=== PATIENT | male | born 1960 | race Caucasian/White ===

== ENCOUNTER 2019-01-22 11:16 | Inpatient (IN) | payer OTHER ==
[~2019-01-22] VITALS: Ht 177.8 cm; Wt 95.5 kg
--- NOTE | 2019-01-22 12:17 | NUR ---
pt. off to ct with reproduction production manager via w/c
[2019-01-22 12:37] LABS: BASOPHILS % (AUTO) 0.4 % (0-1); EOSINOPHILS # (AUTO) 0.1 X10'3 (0-0.9); EOSINOPHILS % (AUTO) 0.6 % (0-6); HEMATOCRIT 39.8 % (42.0-52.0); HEMOGLOBIN 13.4 g/dl (14.0-17.9); LYMPHOCYTES # (AUTO) 0.9 X10'3 (1.1-4.8); LYMPHOCYTES % (AUTO) 7.7 % (21-51); MEAN CORPUSCULAR HEMOGLOBIN 28.9 PG (27.0-31.0); MEAN CORPUSCULAR HGB CONC 33.8 g/dL (33.0-36.5); MEAN CORPUSCULAR VOLUME 85.4 FL (78-98); MEAN PLATELET VOLUME 7.3 FL (7.4-10.4); MONOCYTES # (AUTO) 1.1 X10'3 (0-0.9); MONOCYTES % (AUTO) 9.4 % (2-12); NEUTROPHILS # (AUTO) 9.2 X10'3 (1.8-7.7); NEUTROPHILS % (AUTO) 81.9 % (42-75); PLATELET COUNT 525 X10'3 (140-440); RED BLOOD COUNT 4.65 X10'6 (4.70-6.10); RED CELL DISTRIBUTION WIDTH 14.1 % (11.5-14.5); WHITE BLOOD COUNT 11.2 X10'3 (4.5-11.0)
[2019-01-22 12:53] LABS: CLARITY,URINE CLOUDY (Clear); COLOR,URINE YELLOW (Yellow); GLUCOSE, URINE NEGATIVE (Neg); KETONES,URINE NEGATIVE (Neg); LEUKOCYTE ESTERASE ,URINE LARGE (Neg); NITRITES, URINE NEGATIVE (Neg); OCCULT BLOOD,URINE MODERATE (Neg); PROTEIN,URINE TRACE mg/dl (Neg); UROBILINOGEN,URINE 0.2 E.U/dL (0.2-1.0)
[2019-01-22 12:56] LABS: ALANINE AMINOTRANSFERASE 23 U/L (12-78); ALBUMIN 3.1 G/DL (3.4-5.0); ALBUMIN/GLOBULIN RATIO 0.8 (1.1-1.5); ALKALINE PHOSPHATASE 64 IU/L (46-116); ANION GAP 10 (8-16); ASPARTATE AMINO TRANSFERASE 7 U/L (10-37); BILIRUBIN,TOTAL 0.5 MG/DL (0.1-1.0); BLOOD UREA NITROGEN 19 MG/DL (7-18); BUN/CREATININE RATIO 15.8 (5.4-32.0); CALCIUM 9.4 MG/DL (8.5-10.1); CHLORIDE 103 MMOL/L (99-107); GLUCOSE 107 MG/DL (70-104); LIPASE 106 U/L (73-393); POTASSIUM 3.3 MMOL/L (3.5-5.1); SODIUM 139 MMOL/L (135-145); TOTAL CARBON DIOXIDE 26.3 MMOL/L (24-32); TOTAL PROTEIN 7.2 G/DL (6.4-8.2); eGFR 62 ML/MIN
[2019-01-22 13:14] LABS: UA COLLECTION TYPE CLN CATCH MIDSTREAM
[2019-01-22 13:28] LABS: SQUAMOUS EPITHELIAL CELL,UR FEW /LPF (FEW)
[2019-01-22 13:35] LABS: BACTERIA,URINE 4+ /HPF (Neg); RBC,URINE 0-2 /HPF (0-2); WBC,URINE TNTC /HPF (0-4)
[2019-01-22 13:36] LABS: RENAL CELLS, URINE FEW /HPF
[2019-01-22] MEDS ORDERED: CefTRIAXone 2gm/D5W 50ml 50 ML IV ONE (13:55)
[2019-01-22] MEDS ORDERED: normal saline 1000ML IV soln IV ONE (13:55)
[2019-01-22] MEDS ORDERED: acetaminophen 325mg tablet PO PRN ×2 (15:25)
[2019-01-22] MEDS ORDERED: mag hydrox/Alum hydrox/simeth 30ml oral suspension PO PRN (15:25)
[2019-01-22] MEDS ORDERED: magnesium Cl slow-release 64mg tablet PO PRN (15:25)
[2019-01-22] MEDS ORDERED: magnesium 2GM in 50ml NS 50 ML IV PRN (15:25)
[2019-01-22] MEDS ORDERED: ondansetron/PF 4mg/2ml inj IV PRN (15:25)
[2019-01-22] MEDS ORDERED: potassium Cl 20 mEq SR tablet PO PRN (15:25)
[2019-01-22] MEDS ORDERED: morphine 2 MG/ML inj. syringe IV PRN (15:25)
[2019-01-22] MEDS ORDERED: magnesium 4gm in 100ml NS 100 ML IV PRN (15:25)
[2019-01-22] MEDS ORDERED: potassium CL 10mEq/100ml bag 100 ML IV PRN ×2 (15:25)
[2019-01-22] MEDS ORDERED: HYDR25TA4 PO (15:33)
[2019-01-22] MEDS ORDERED: IBUP-1984 PO (15:33)
[2019-01-22] MEDS ORDERED: ASPI-1265 PO (15:33)
[2019-01-22] MEDS ORDERED: FLO0.4C PO (15:33)
[2019-01-22] MEDS ORDERED: METO50TA7 PO (15:33)
[2019-01-22] MEDS ORDERED: LOSA50TA64 PO (15:33)
[2019-01-22] MEDS: normal saline 1000ml 1,000 ML IV SCH (15:48)
[2019-01-22] MEDS: HYDROcodone/acetaminophen 10/325mg tab PO PRN (16:00)
[2019-01-22] MEDS ORDERED: hydrALAZINE 20mg/ml inj. IV PRN (17:25)
[2019-01-22] MEDS ORDERED: tamsulosin 0.4mg capsule PO SCH (17:30)
[2019-01-22] MEDS ORDERED: tamsulosin 0.4mg capsule PO ONE (17:30)
--- NOTE | 2019-01-22 21:00 | NUR ---
Patient in room [facility]. I have received report from RUDY Alberts RN and had the opportunity to ask questions and assume patient care.
--- NOTE | 2019-01-22 21:24 | NUR ---
patient arrived at 2115 via gurney and in no acute distress.
[2019-01-22 21:28] VITALS: BP 125/81
[2019-01-22] MEDS: morphine 2 MG/ML inj. syringe IV PRN (21:50)
[2019-01-23] VITALS (21 sets, daily range): BP systolic 80–170; BP diastolic 52–107
[2019-01-23] MEDS: HYDROcodone/acetaminophen 10/325mg tab PO PRN ×3 (00:28→21:09)
[2019-01-23] MEDS: potassium Cl 20 mEq SR tablet PO PRN ×2 (01:30→06:41)
[2019-01-23] MEDS: normal saline 1000ml 1,000 ML IV SCH ×2 (01:30→11:29)
[2019-01-23] MEDS: morphine 2 MG/ML inj. syringe IV PRN (04:01)
[2019-01-23] MEDS ORDERED: morphine 2 MG/ML inj. syringe IV STA (04:16)
--- NOTE | 2019-01-23 04:21 | NUR ---
patient is in a lot pain and was screaming. He was getting morphine and norco for pain. patient still c/o pain and stating its not helping. Notify Dr. feliz and ordered 2mg morphine once and 4mg morphine q3h prn.
[2019-01-23 04:30] LABS: BASOPHILS # (AUTO) 0.1 X10'3 (0-0.2); BASOPHILS % (AUTO) 1.3 % (0-1); EOSINOPHILS # (AUTO) 0.1 X10'3 (0-0.9); EOSINOPHILS % (AUTO) 0.7 % (0-6); HEMATOCRIT 37.6 % (42.0-52.0); HEMOGLOBIN 12.7 g/dl (14.0-17.9); LYMPHOCYTES # (AUTO) 1.1 X10'3 (1.1-4.8); MEAN CORPUSCULAR HEMOGLOBIN 28.9 PG (27.0-31.0); MEAN CORPUSCULAR HGB CONC 33.7 g/dL (33.0-36.5); MEAN CORPUSCULAR VOLUME 85.6 FL (78-98); MEAN PLATELET VOLUME 7.2 FL (7.4-10.4); MONOCYTES # (AUTO) 1.3 X10'3 (0-0.9); MONOCYTES % (AUTO) 11.8 % (2-12); NEUTROPHILS # (AUTO) 8.1 X10'3 (1.8-7.7); NEUTROPHILS % (AUTO) 76.2 % (42-75); PLATELET COUNT 533 X10'3 (140-440); RED BLOOD COUNT 4.39 X10'6 (4.70-6.10); RED CELL DISTRIBUTION WIDTH 13.8 % (11.5-14.5); WHITE BLOOD COUNT 10.7 X10'3 (4.5-11.0)
[2019-01-23 04:42] LABS: ALBUMIN 3.2 G/DL (3.4-5.0); ANION GAP 10 (8-16); BLOOD UREA NITROGEN 18 MG/DL (7-18); BUN/CREATININE RATIO 13.1 (5.4-32.0); CALCIUM 8.7 MG/DL (8.5-10.1); CHLORIDE 105 MMOL/L (99-107); CREATININE 1.37 MG/DL (0.60-1.10); GLUCOSE 101 MG/DL (70-104); MAGNESIUM 1.6 MG/DL (1.5-2.4); POTASSIUM 3.5 MMOL/L (3.5-5.1); SODIUM 140 MMOL/L (135-145); TOTAL CARBON DIOXIDE 25.3 MMOL/L (24-32); eGFR 54 ML/MIN
--- NOTE | 2019-01-23 06:42 | NUR ---
Problems reprioritized. Patient report given, questions answered & plan of care reviewed with FATOUMATA Tucker.
--- NOTE | 2019-01-23 06:54 | NUR ---
Patient in room [facility]. I have received report from Bibiana Escalante RN and had the opportunity to ask questions and assume patient care.
[2019-01-23] MEDS: morphine 4 MG/ML inj SYRINge IV PRN ×2 (07:24→10:11)
[2019-01-23] MEDS: metoprolol succinate 25mg (24-HOUR) SR. Tablet PO SCH (07:26)
[2019-01-23] MEDS: CefTRIAXone 2gm/D5W 50ml 50 ML IV SCH (07:26)
[2019-01-23] MEDS: tamsulosin 0.4mg capsule PO SCH (07:26)
[2019-01-23] MEDS ORDERED: non-formulary drug (Metoprolol Succinate* (Toprol Xl*) 1 TAB) PO SCH (08:00)
[2019-01-23] MEDS: K and/or MAG REPLACEMENT MC SCH (08:00)
[2019-01-23] MEDS: magnesium hydroxide 30ml (MOM) UD suspension PO PRN (09:29)
[2019-01-23 10:37] LABS: PARTIAL THROMBOPLASTIN TIME 31 SECONDS (22-32)
[2019-01-23] MEDS ORDERED: ringers solution, lacted 1,000 ML IV ONE (11:13)
--- NOTE | 2019-01-23 12:37 | NUR ---
Pt is going to OR for kidney stone Extraction
[2019-01-23] MEDS ORDERED: iohexol 300 MG/1 ML 50ml polymer ONE (12:38)
--- NOTE | 2019-01-23 12:41 | NUR ---
Problems reprioritized. Patient report given, questions answered & plan of care reviewed with Casa in OR.
[2019-01-23] MEDS ORDERED: fentaNYL /PF 50mcg/ml 5ml ampule ONE (12:45)
[2019-01-23] MEDS ORDERED: midazolam 2 mg/2 ml injection ONE (12:45)
[2019-01-23] MEDS ORDERED: LIDOcaine 2% (20mg/ml) 5ml vial ONE (12:46)
[2019-01-23] MEDS ORDERED: dexamethasone sod phosphate 4mg/ml inj. ONE (12:46)
[2019-01-23] MEDS ORDERED: ondansetron/PF 4mg/2ml inj ONE (12:46)
[2019-01-23] MEDS ORDERED: propofol inj 20 ML IV ONE (12:46)
[2019-01-23] MEDS ORDERED: ringers solution, lacted 1,000 ML IV SCH (12:52)
[2019-01-23] MEDS ORDERED: ondansetron/PF 4mg/2ml inj IV PRN (12:55)
[2019-01-23] MEDS ORDERED: fentaNYL/PF 50MCG/1 ML 2ML syringe IV PRN ×2 (12:55)
[2019-01-23] MEDS ORDERED: morphine 4 MG/ML inj SYRINge IV PRN ×2 (12:55)
[2019-01-23] MEDS ORDERED: hydrALAZINE 20mg/ml inj. IV PRN (12:55)
[2019-01-23] MEDS ORDERED: labetalol 20mg/4ml (5mg/ml) syringe IV PRN (12:55)
[2019-01-23] MEDS ORDERED: sevoflurane 250ml liquid IH ONE (13:20)
[2019-01-23] MEDS ORDERED: acetaminophen 1,000mg/100ml IV 100 ML IV ONE (13:24)
--- NOTE | 2019-01-23 14:15 | NUR ---
Received from OR via SURGICAL BED. , accompanied by Anesthesiologist LIAN and report given by Anesthesiolgist. 20G PIV IN LEFT AC RUNNING LR AT 100. 10L MASK ON WITH 100% SATURATIONS. SCDS DONNED. WILL CONTINUE TO ASSESS. Addendum: 01/23/19 at 1431 by John Tan RN, RN Amended: Links added.
--- NOTE | 2019-01-23 15:15 | NUR ---
ALL CRITERIA FOR TRANSFER TO THE FLOOR HAS BEEN ACHIEVED. VSS. BED LOW, CALL LIGHT AND VS. SET IN PLACE. RN PRESENT TO ACCEPT CARE. PATIENT RESTING COMFORTABLY IN BED. BELONGINGS SENT WITH PATIENT. DRESSINGS CDI. Addendum: 01/23/19 at 1528 by John Tan RN RN Amended: Links added.
--- NOTE | 2019-01-23 15:18 | NUR ---
Patient in room [facility]. I have received report from ELO HAM and had the opportunity to ask questions and assume patient care.
--- NOTE | 2019-01-23 15:34 | NUR ---
patient returned to room 346b via bed accompanied by x1 staff. patient is alert and oriented and denies any pain. post op vitals initiated. will continue to monitor. call light within reach.
--- NOTE | 2019-01-23 18:37 | NUR ---
Patient in room [facility]. I have received report from FATOUMATA RANKIN and had the opportunity to ask questions and assume patient care. Addendum: 01/23/19 at 1837 by Katia Thomas RN Amended: Links added.
--- NOTE | 2019-01-23 21:13 | NUR ---
patient c/o not passing urine at this time and did bladder scan and found to have 650cc. Dr. banerjee ordered to to straight cath for patient. Educated patient about the process and encouraged him to walk prior the straight cath
[2019-01-24] VITALS: BP 153/80
--- NOTE | 2019-01-24 02:00 | NUR ---
patient decided to do straight cath and had an output of 1000cc, felt a lot better and had less pain.
[2019-01-24] MEDS: normal saline 1000ml 1,000 ML IV SCH ×3 (04:00→17:45)
[2019-01-24 04:51] VITALS: BP 138/92
[2019-01-24 04:58] LABS: BASOPHILS # (AUTO) 0.1 X10'3 (0-0.2); BASOPHILS % (AUTO) 0.6 % (0-1); EOSINOPHILS % (AUTO) 0.3 % (0-6); HEMATOCRIT 32.9 % (42.0-52.0); HEMOGLOBIN 11.4 g/dl (14.0-17.9); LYMPHOCYTES # (AUTO) 0.9 X10'3 (1.1-4.8); LYMPHOCYTES % (AUTO) 9.7 % (21-51); MEAN CORPUSCULAR HEMOGLOBIN 29.3 PG (27.0-31.0); MEAN CORPUSCULAR HGB CONC 34.7 g/dL (33.0-36.5); MEAN CORPUSCULAR VOLUME 84.5 FL (78-98); MEAN PLATELET VOLUME 6.8 FL (7.4-10.4); MONOCYTES % (AUTO) 10.8 % (2-12); NEUTROPHILS # (AUTO) 7.3 X10'3 (1.8-7.7); NEUTROPHILS % (AUTO) 78.6 % (42-75); PLATELET COUNT 456 X10'3 (140-440); RED BLOOD COUNT 3.89 X10'6 (4.70-6.10); RED CELL DISTRIBUTION WIDTH 14.1 % (11.5-14.5); WHITE BLOOD COUNT 9.3 X10'3 (4.5-11.0)
[2019-01-24 05:17] LABS: ALBUMIN 2.7 G/DL (3.4-5.0); ANION GAP 10 (8-16); BLOOD UREA NITROGEN 22 MG/DL (7-18); BUN/CREATININE RATIO 17.7 (5.4-32.0); CALCIUM 8.3 MG/DL (8.5-10.1); CHLORIDE 107 MMOL/L (99-107); CREATININE 1.24 MG/DL (0.60-1.10); GLUCOSE 126 MG/DL (70-104); MAGNESIUM 2.1 MG/DL (1.5-2.4); POTASSIUM 3.9 MMOL/L (3.5-5.1); SODIUM 142 MMOL/L (135-145); TOTAL CARBON DIOXIDE 24.6 MMOL/L (24-32); eGFR 60 ML/MIN
[2019-01-24] MEDS ORDERED: famotidine 20mg tablet PO ONE (06:00)
[2019-01-24] MEDS: magnesium hydroxide 30ml (MOM) UD suspension PO PRN (06:05)
--- NOTE | 2019-01-24 06:44 | NUR ---
Problems reprioritized. Patient report given, questions answered & plan of care reviewed with FATOUMATA Sanabria.
--- NOTE | 2019-01-24 07:12 | NUR ---
Patient in room [facility]. I have received report from Bibiana Sood RN and had the opportunity to ask questions and assume patient care.
[2019-01-24 07:14] VITALS: BP 124/76
--- NOTE | 2019-01-24 07:24 | NUR ---
Patient reports pain and discomfort in bladder due to unable to void. Bladder scan showed 787ml in bladder. Dr. Varghese in to round and notified. Dr. Varghese ordered for straight cath "until he's ready to go home" and if needed, for hospitalist to order insertion of falk catheter for patient to dc with.
--- NOTE | 2019-01-24 07:26 | NUR ---
Patient tolerated straight cath well. 750ml clear, straw colored urine drained. Patient reports relief from pain or discomfort in bladder.
[2019-01-24] MEDS: CefTRIAXone 2gm/D5W 50ml 50 ML IV SCH (07:56)
[2019-01-24] MEDS: tamsulosin 0.4mg capsule PO SCH (07:56)
[2019-01-24] MEDS: metoprolol succinate 25mg (24-HOUR) SR. Tablet PO SCH (07:56)
[2019-01-24] MEDS: K and/or MAG REPLACEMENT MC SCH (07:58)
[2019-01-24 11:49] VITALS: BP 137/84
[2019-01-24] MEDS: oxybutynin 5mg tablet PO SCH ×2 (13:09→20:50)
[2019-01-24] MEDS: HYDROcodone/acetaminophen 5mg/325mg tablet PO PRN (13:10)
[2019-01-24] MEDS ORDERED: LIDOcaine 2% 10ml TOPICAL JELLY (Urojet) MM ONE ×2 (13:20→16:50)
--- NOTE | 2019-01-24 14:11 | NUR ---
Patient bladder scanned which showed 976ml's of urine in bladder. Patient was straight cathed per MD orders using a urojet and sterile technique. 900ml's urine was drained from patients bladder. Patient does complain of a burning sensation, notified primary RN Erin
[2019-01-24] MEDS: HYDROcodone/acetaminophen 10/325mg tab PO PRN ×2 (17:02→20:50)
[2019-01-24] MEDS: phenazopyridine 100mg tablet PO SCH (17:45)
[2019-01-24 18:00] VITALS: BP 126/79
--- NOTE | 2019-01-24 18:40 | NUR ---
Problems reprioritized. Patient report given, questions answered & plan of care reviewed with EFREN HAM.
--- NOTE | 2019-01-24 18:43 | NUR ---
Pt retaining urine, bladder scan indicated 736 ml, order for indwelling cath. order attained. Pt tolerated insertion of cath well, 650 ml drained light umer color.
--- NOTE | 2019-01-24 18:45 | NUR ---
Patient in room [facility]. I have received report from Elly HAM and Erin HAM and had the opportunity to ask questions and assume patient care.
[2019-01-24] MEDS: lactobacillus rhamnosus 10,000 MMU CELLS/CAPSULE PO SCH (20:49)
[2019-01-24] MEDS: benzocaine/benzethon 30gm ointment RC PRN (20:56)
[2019-01-25 00:02] VITALS: BP 114/74
[2019-01-25] MEDS: HYDROcodone/acetaminophen 10/325mg tab PO PRN ×4 (01:12→21:52)
[2019-01-25] MEDS: morphine 4 MG/ML inj SYRINge IV PRN ×4 (03:01→20:01)
[2019-01-25] MEDS: normal saline 1000ml 1,000 ML IV SCH ×2 (03:05→13:17)
[2019-01-25 04:50] LABS: BASOPHILS % (AUTO) 0.3 % (0-1); EOSINOPHILS # (AUTO) 0.1 X10'3 (0-0.9); EOSINOPHILS % (AUTO) 1.7 % (0-6); HEMATOCRIT 31.9 % (42.0-52.0); LYMPHOCYTES # (AUTO) 0.9 X10'3 (1.1-4.8); LYMPHOCYTES % (AUTO) 13.6 % (21-51); MEAN CORPUSCULAR HEMOGLOBIN 29.1 PG (27.0-31.0); MEAN CORPUSCULAR HGB CONC 34.5 g/dL (33.0-36.5); MEAN CORPUSCULAR VOLUME 84.4 FL (78-98); MEAN PLATELET VOLUME 7.1 FL (7.4-10.4); MONOCYTES # (AUTO) 0.8 X10'3 (0-0.9); MONOCYTES % (AUTO) 11.2 % (2-12); NEUTROPHILS # (AUTO) 4.9 X10'3 (1.8-7.7); NEUTROPHILS % (AUTO) 73.2 % (42-75); PLATELET COUNT 402 X10'3 (140-440); RED BLOOD COUNT 3.78 X10'6 (4.70-6.10); RED CELL DISTRIBUTION WIDTH 14.3 % (11.5-14.5); WHITE BLOOD COUNT 6.7 X10'3 (4.5-11.0)
[2019-01-25 04:54] LABS: ALBUMIN 2.5 G/DL (3.4-5.0); ANION GAP 8 (8-16); BLOOD UREA NITROGEN 17 MG/DL (7-18); BUN/CREATININE RATIO 16.7 (5.4-32.0); CALCIUM 7.8 MG/DL (8.5-10.1); CHLORIDE 111 MMOL/L (99-107); CREATININE 1.02 MG/DL (0.60-1.10); GLUCOSE 104 MG/DL (70-104); POTASSIUM 3.5 MMOL/L (3.5-5.1); SODIUM 144 MMOL/L (135-145); TOTAL CARBON DIOXIDE 25.3 MMOL/L (24-32); eGFR 75 ML/MIN
--- NOTE | 2019-01-25 06:50 | NUR ---
Problems reprioritized. Patient report given, questions answered & plan of care reviewed with Karuna.
[2019-01-25] MEDS: CefTRIAXone 2gm/D5W 50ml 50 ML IV SCH (07:03)
[2019-01-25] MEDS: metoprolol succinate 25mg (24-HOUR) SR. Tablet PO SCH (07:03)
[2019-01-25] MEDS: HYDROcodone/acetaminophen 5mg/325mg tablet PO PRN (07:04)
[2019-01-25] MEDS: oxybutynin 5mg tablet PO SCH ×3 (07:04→20:03)
[2019-01-25] MEDS: lactobacillus rhamnosus 10,000 MMU CELLS/CAPSULE PO SCH ×2 (07:04→20:01)
[2019-01-25] MEDS: phenazopyridine 100mg tablet PO SCH ×3 (07:04→18:47)
[2019-01-25] MEDS: tamsulosin 0.4mg capsule PO SCH (07:10)
--- NOTE | 2019-01-25 07:12 | NUR ---
Patient in room [facility]. I have received report from Jaleesa HAM and had the opportunity to ask questions and assume patient care.
[2019-01-25 07:13] VITALS: BP 123/80
--- NOTE | 2019-01-25 07:48 | NUR ---
Pt Positive for Urine MDRO enterobacter clocae complex. Pt on Rocephin. Dr Urbano notified.
[2019-01-25] MEDS: K and/or MAG REPLACEMENT MC SCH (08:00)
[2019-01-25] MEDS: ciprofloxacin lact 400MG/200ML 200 ML IV SCH ×2 (09:29→20:01)
[2019-01-25 11:45] VITALS: BP 117/78
[2019-01-25 12:55] VITALS: BP 117/78
--- NOTE | 2019-01-25 13:05 | NUR ---
Problems reprioritized. Patient report given, questions answered & plan of care reviewed with FATOUMATA Fried.
[2019-01-25] MEDS: benzocaine/benzethon 30gm ointment RC PRN (15:33)
--- NOTE | 2019-01-25 18:25 | NUR ---
Patient in room [facility]. I have received report from FATOUMATA Sanabria and had the opportunity to ask questions and assume patient care.
--- NOTE | 2019-01-25 18:36 | NUR ---
Problems reprioritized. Patient report given, questions answered & plan of care reviewed with Ivan HAM.
[2019-01-25 20:00] VITALS: BP 113/67
[2019-01-25] MEDS: magnesium hydroxide 30ml (MOM) UD suspension PO PRN (20:01)
[2019-01-26] VITALS: BP 122/67
[2019-01-26 05:28] LABS: BASOPHILS # (AUTO) 0.1 X10'3 (0-0.2); EOSINOPHILS # (AUTO) 0.2 X10'3 (0-0.9); EOSINOPHILS % (AUTO) 3.1 % (0-6); HEMATOCRIT 36.9 % (42.0-52.0); HEMOGLOBIN 12.4 g/dl (14.0-17.9); LYMPHOCYTES # (AUTO) 1.1 X10'3 (1.1-4.8); LYMPHOCYTES % (AUTO) 15.9 % (21-51); MEAN CORPUSCULAR HEMOGLOBIN 28.8 PG (27.0-31.0); MEAN CORPUSCULAR HGB CONC 33.7 g/dL (33.0-36.5); MEAN CORPUSCULAR VOLUME 85.2 FL (78-98); MEAN PLATELET VOLUME 7.5 FL (7.4-10.4); MONOCYTES # (AUTO) 0.8 X10'3 (0-0.9); MONOCYTES % (AUTO) 11.7 % (2-12); NEUTROPHILS # (AUTO) 4.8 X10'3 (1.8-7.7); NEUTROPHILS % (AUTO) 68.3 % (42-75); PLATELET COUNT 458 X10'3 (140-440); RED BLOOD COUNT 4.33 X10'6 (4.70-6.10); RED CELL DISTRIBUTION WIDTH 14.3 % (11.5-14.5)
[2019-01-26] MEDS: benzocaine/benzethon 30gm ointment RC PRN (05:42)
[2019-01-26] MEDS: HYDROcodone/acetaminophen 10/325mg tab PO PRN ×2 (05:42→12:06)
[2019-01-26 06:03] LABS: ANION GAP 8 (8-16); BLOOD UREA NITROGEN 14 MG/DL (7-18); CHLORIDE 105 MMOL/L (99-107); CREATININE 1.17 MG/DL (0.60-1.10); GLUCOSE 96 MG/DL (70-104); MAGNESIUM 2.1 MG/DL (1.5-2.4); POTASSIUM 4.4 MMOL/L (3.5-5.1); SODIUM 139 MMOL/L (135-145); TOTAL CARBON DIOXIDE 26.3 MMOL/L (24-32); eGFR 64 ML/MIN
--- NOTE | 2019-01-26 06:30 | NUR ---
Patient in room [facility]. I have received report from Ivan HAM and had the opportunity to ask questions and assume patient care.
--- NOTE | 2019-01-26 06:35 | NUR ---
Problems reprioritized. Patient report given, questions answered & plan of care reviewed with FATOUMATA Short.
[2019-01-26 07:17] VITALS: BP 135/56
[2019-01-26] MEDS: K and/or MAG REPLACEMENT MC SCH (08:00)
[2019-01-26] MEDS: tamsulosin 0.4mg capsule PO SCH (08:14)
[2019-01-26] MEDS: lactobacillus rhamnosus 10,000 MMU CELLS/CAPSULE PO SCH (08:14)
[2019-01-26] MEDS: oxybutynin 5mg tablet PO SCH ×2 (08:14→13:00)
[2019-01-26] MEDS: phenazopyridine 100mg tablet PO SCH ×2 (08:15→13:00)
[2019-01-26] MEDS: metoprolol succinate 25mg (24-HOUR) SR. Tablet PO SCH (08:15)
[2019-01-26] MEDS: ciprofloxacin lact 400MG/200ML 200 ML IV SCH (08:17)
[2019-01-26] MEDS ORDERED: IBUP-1984 PO (10:13)
[2019-01-26] MEDS ORDERED: CIPR-230 PO (10:13)
[2019-01-26] MEDS ORDERED: PHEN-786 PO (10:13)
[2019-01-26] MEDS ORDERED: OXYB5TAB16 PO (10:13)
[2019-01-26 11:00] VITALS: BP 129/80
--- NOTE | 2019-01-26 13:00 | NUR ---
Patient discharge with falk catheter in place. Patient is to follow up with dr. lópez. Patient was given extra night bag, a day bag. some catheter care wipes exptra statlock, a plug some graduated cylinders and a screen to strain all urine. Patient was educated on use of all fot the devices. Patient was educated on new medication and expressed verbal understanding of the medications and discharge teaching. Patient IV taken out at this time as well. Patient was transported home by family in private vehicle.
== END 2019-01-26 15:15 | disposition home or self-care (01) | DRG 660 ==
LOC: ER 11:17 → SUR 3N 20:55 → CMPBEDREQ 21:37
PROVIDERS: ADMIT Hospitalist; ATTEND Family Medicine
PROC: 0TC78ZZ Extirpation of Matter from Left Ureter, Via Natural or Artificial Opening Endoscopic (ICD-10-PCS; 2019-01-23)
PROC: 0T778DZ Dilation of Left Ureter with Intraluminal Device, Via Natural or Artificial Opening Endoscopic (ICD-10-PCS; principal; 2019-01-23 13:20)
DX: N13.6 Pyonephrosis (principal); N20.2 Calculus of kidney with calculus of ureter; D64.9 Anemia, unspecified; I12.9 Hypertensive chronic kidney disease with stage 1 through stage 4 chronic kidney disease, or unspecified chronic kidney disease; N18.9 Chronic kidney disease, unspecified; N17.9 Acute kidney failure, unspecified; Z87.442 Personal history of urinary calculi
CPT/HCPCS: 96365; 96375; 99285; Z7506; 36415; 76000; 80048; 80053; 81001; 82948; 83605; 83690; 83735; 84145; 85025; 85610; 85730; 87040; 87077; 87081; 87088; 87186; 93005; A4402; A4618; A7000; C1769; C2617; G0378; J0131; J0696; J0744; J1100; J2001; J2250; J2270; J2405; J2704; J3010; J7030; J7120; Q9967